=== PATIENT | female | born 1960 | race Caucasian/White ===

== ENCOUNTER 2017-06-17 04:01 | Emergency (ER) | payer SELFPAY ==
--- NOTE | 2017-06-17 04:09 | EDPHY ---
H & P HPI/ROS: HPI CHIEF COMPLAINT: Right arm pain, homeless, polysubstance abuse HISTORY OF PRESENT ILLNESS: This patient 57-year-old female she presents to the emergency room by EMS from the homeless long-term stating that she has relapsed doing methamphetamine. She states for the past 3 months she has had right arm pain that feels like pins and needles. No new trauma. She denies any chest pain or shortness of breath she denies fever. Denies headache. Denies neck pain. I did Greet her in ER room 14 after EMS dropped her off where she immediately became agitated and angry. I tried to calmed her down however she started yelling at me. She is refusing to answer any of my questions. When I asked her about her past Medical history she tells me I should already know her medical history. I have made multiple attempts to converse with her and ask her about her medical history and how we can help her in the emergency room however she continues to yell at me and avoids the question. Past Medical History: Patient will not tell me her medical history Past Surgical History: She will not tell me her surgical history Social History: She admits to doing methamphetamine and alcohol. History of substance abuse Family History: Noncontributory ROS REVIEW OF SYSTEMS: Review of systems is limited. Exam Constitutional angry, yelling at staff, yelling at nursing staff yelling at myself, triage nursing summary reviewed, vital signs reviewed, awake/alert. Eyes normal conjunctivae and sclera, EOMI, PERRLA. HENT normal inspection, atraumatic, moist mucus membranes, no epistaxis, neck supple/ no meningismus, no raccoon eyes. Respiratory clear to auscultation bilaterally, normal breath sounds, no respiratory distress, no wheezing. Cardiovascular rate normal, regular rhythm, no murmur, no edema, distal pulses normal. Gastrointestinal soft, non-tender, no rebound, no guarding, normal bowel sounds, no distension, no pulsatile mass. Genitourinary no CVA tenderness. Musculoskeletal no midline vertebral tenderness, full range of motion, no calf swelling, no tenderness of extremities, no meningismus, good pulses, neurovascularly intact. Skin pink, warm, & dry, no rash, skin atraumatic. Neurologic awake, alert and oriented x 3, AAOx3, moves all 4 extremities equally, motor intact, sensory intact, CN II-XII intact, normal cerebellar, normal vision, normal speech. Psychiatric normal mood/affect. Heme/Lymph/Immune no lymphadenopathy. Differential Diagnosis: Includes but is not limited to in a particular order polysubstance abuse, oppositional defiant disorder, anger issue, personality d/o , mood d/o Medical Decision MakinAM: I have made multiple attempts up to 5 attempts to go into her room and get history and asked her what I can help her with however every time ago when she starts yelling at me. When I asked her where she lives she tells me she lives on the streets. When I ask her where has she come from she tells me "Her Mom" When I ask her about her medical history she tells me that she has none. I specifically asked multiple ways I asked her does she take any medications she tells me no. I asked her she has ever been diagnosed with any medical history or mental illness and she tells me thyroid disease as well as PTSD and anxiety. I spent over 20 minutes multiple times trying to get information from her however she starts ridiculing me in the emergency room and yelling at me. Re-evaluation: I did try to review this patient's Past Medical history in the records however she has never been here before. Due to her anger aggressiveness towards staff and myself and me making multitude attempts to help her however does not seem that she wants my help I have asked police to come and talk to her. [id number]: The police have now met with the patient. The patient is requesting go to detox. She is tells me she would like to go to detox from methamphetamine. The police have agreed to bring her to detox. Patient chest ambulated out the back door EMS [place] with police. On her own will. Requesting the department of natural resources officer take her to detox. Source: Patient, EMS Constitutional: Initial Vital Signs Temperature (C) 36.6 C 06/17/17 04:16 Heart Rate 67 06/17/17 04:16 Respiratory Rate 20 06/17/17 04:16 Blood Pressure 155/96 H 06/17/17 04:16 O2 Sat (%) 98 06/17/17 04:16 O2 Delivery Mode Room Air Allergies/Adverse Reactions: Unable to Assess Allergy (Unverified 06/17/17 04:18) Home Medications: Medication Instructions Recorded Unobtainable 06/17/17 Departure - Departure Disposition: Against Medical Advice Condition: Fair Referrals: Patient,NotPresent [Primary Care Provider] - As per Instructions
[2017-06-17 04:18] VITALS: BP 155/96; PULSE 67; RESP 20; TEMP 97.9; O2SAT 98
== END 2017-06-17 04:30 | disposition left against medical advice (07) ==
DX: F19.10 Other psychoactive substance abuse, uncomplicated (principal)

== ENCOUNTER 2017-06-27 10:54 | Emergency (ER) | payer MEDICAID ==
[2017-06-27 11:02] VITALS: BP 127/53; PULSE 52; RESP 18; TEMP 98.2; O2SAT 96
[2017-06-27 11:12] LABS: COLOR PALE YELLOW; LEUKOCYTE ESTERASE,URINE TRACE (NEGATIVE); NITRITE,URINE NEGATIVE (NEGATIVE)
--- NOTE | 2017-06-27 12:05 | EDPHY ---
H & P Stated Complaint: UTI sxs for several weeks Time Seen by Provider: 06/27/17 11:32 HPI/ROS: CHIEF COMPLAINT: concerned about urinary tract infection HISTORY OF PRESENT ILLNESS: 57-year-old female presents emergency department concerned that she has a urinary tract infection. Patient reports she was seen in a hospital 3 weeks ago and told she had a urinary tract infection. She was given a prescription for an antibiotic that she states she was unable to take. Patient presents stating she is wondering if she continues to have a urinary tract infection. The patient is agitated on my exam, she will not answer any other questions. She will not tell me if she has any symptoms. She states "I have PTSD and will not tolerate being questioned like this". REVIEW OF SYSTEMS: A comprehensive 10 point review of systems is otherwise negative aside from elements mentioned in the history of present illness. Source: Patient Exam Limitations: Clinical condition - Personal History Current Tetanus Diphtheria and Acellular Pertussis (TDAP): Yes - Medical/Surgical History Other PMH: PTSD, Manic, IV drug user - Social History Smoking Status: Never smoked - Physical Exam Exam: GEN: Awake, alert, oriented, agitated, refuses exam RESP: nl resp effort MSK: Moves all extremities SKIN: No rash on exposed skin Constitutional: Initial Vital Signs Temperature (C) 36.8 C 06/27/17 10:57 Heart Rate 52 L 06/27/17 10:57 Respiratory Rate 18 06/27/17 10:57 Blood Pressure 127/53 H 06/27/17 10:57 O2 Sat (%) 96 06/27/17 10:57 O2 Delivery Mode Room Air Allergies/Adverse Reactions: No Known Allergies Allergy (Unverified 06/27/17 11:02) Home Medications: Medication Instructions Recorded NK [No Known Home Meds] 06/27/17 Medical Decision Making ED Course/Re-evaluation: Pt is agitated and is refusing to answer my questions. She is refusing a physical exam and states " I already told 3 people, just tell my what my urine results are". Patient has normal vital signs. Urinalysis shows no evidence of infection. She will be discharged. Patient reports she has an appointment tomorrow at [facility]. - Data Points Laboratory Results: 06/27/17 11:00 Urine Color PALE YELLOW Urine Appearance CLEAR Urine pH 6.0 (5.0-7.5) Ur Specific [place] 1.005 (1.002-1.030) Urine Protein NEGATIVE (NEGATIVE) Urine Ketones NEGATIVE (NEGATIVE) Urine Blood NEGATIVE (NEGATIVE) Urine Nitrate NEGATIVE (NEGATIVE) Urine Bilirubin NEGATIVE (NEGATIVE) Urine Urobilinogen NEGATIVE EU EU (0.2-1.0) Ur Leukocyte Esterase TRACE H (NEGATIVE) Urine RBC 1-3 /hpf /hpf (0-3) Urine WBC 1-3 /hpf /hpf (0-3) Ur Epithelial Cells TRACE /lpf /lpf (NONE-1+) Urine Glucose NEGATIVE (NEGATIVE) Departure - Departure Disposition: Home, Routine, Self-Care Clinical Impression: Normal urinalysis Condition: Good Instructions: [facility] Additional Instructions: Follow up with your primary care doctor or the primary care doctor listed for any new symptoms or concerns. Referrals: [facility],. [Clinic] - As per Instructions
== END 2017-06-27 12:18 | disposition home or self-care (01) ==
DX: Z13.89 Encounter for screening for other disorder (principal)